=== PATIENT | female | born 1950 | race Caucasian/White ===

== ENCOUNTER → 2017-03-26 | Outpatient (CLI) | payer MEDICARE ==
--- NOTE | 2017-03-26 14:40 | RAD ---
DATE: 03/26/2017 EXAM: MAMMO PLACIDO SCREENING BILATERAL HISTORY: Routine screening COMPARISON: 03/05/2016 This study was interpreted with the benefit of Computerized Aided Detection (CAD). The breast parenchyma shows scattered fibroglandular densities. Breast parenchyma level B. FINDINGS: 2-D and 3-D tomosynthesis imaging was performed in CC and MLO projections. There are dystrophic coarse calcifications in the posterolateral aspect of the right breast with mild architectural distortion. These findings are unchanged and are apparently on a post therapeutic basis in this patient with a history of breast cancer. No new or enlarging breast densities are seen. No suspicious microcalcifications are evident. IMPRESSION: Stable mammograms without evidence of malignancy. BI-RADS CATEGORY: 2 BENIGN FINDING(S) RECOMMENDED FOLLOW-UP: 12M 12 MONTH FOLLOW-UP PQRS compliance statement: Patient information was entered into a reminder system with a target due date for the next mammogram. Mammography is a sensitive method for finding small breast cancers, but it does not detect them all and is not a substitute for careful clinical examination. A negative mammogram does not negate a clinically suspicious finding and should not result in delay in biopsying a clinically suspicious abnormality. "Our facility is accredited by the [employer] Mammography [employer]."
== END | disposition home or self-care (01) ==
LOC: MAMMO 11:03
PROVIDERS: ATTEND Family Medicine
DX: Z12.31 Encounter for screening mammogram for malignant neoplasm of breast (principal); Z85.3 Personal history of malignant neoplasm of breast
CPT/HCPCS: 77063; 77067

== ENCOUNTER → 2017-09-08 | Outpatient (CLI) | payer MEDICARE ==
--- NOTE | 2017-09-08 09:16 | RAD ---
DATE: 09/08/2017 EXAM: DIGITAL DIAGNOSTIC RT, BREAST RIGHT HISTORY: Right breast nodule, previous right breast cancer COMPARISON: 03/26/2017 This study was interpreted with the benefit of Computerized Aided Detection (CAD). The breast parenchyma shows scattered fibroglandular densities. Breast parenchyma level B. FINDINGS: A BB was placed over the area of palpable concern near the right axilla with MLO and exaggerated CC mammograms obtained. The fibroglandular pattern is unchanged since previous studies. There are dystrophic type calcifications in the posterolateral aspect of the right breast presumably on a post therapeutic bases. These coarse calcifications also lie in the region of the BB marking the palpable nodule. No separate soft tissue density or new abnormality is evident. Right breast ultrasound, 09/08/2017: The area of palpable concern was carefully scanned. Just beneath the skin at this level there is a small focus of increased echogenicity measuring only 1-2 mm. There is posterior acoustic shadowing. The appearance is that of a small calcification. Correlation with the mammogram suggests that this represents one of the distal for calcifications. No other abnormality is seen in this region. IMPRESSION: The area of palpable concern in the axillary tail region of the right breast appears to correspond to stable dystrophic calcifications as described above. No suspicious breast densities evident. Clinical surveillance is suggested. BI-RADS CATEGORY: 2 BENIGN FINDING(S) RECOMMENDED FOLLOW-UP: 12M 12 MONTH FOLLOW-UP PQRS compliance statement: Patient information was entered into a reminder system with a target due date for the next mammogram. Mammography is a sensitive method for finding small breast cancers, but it does not detect them all and is not a substitute for careful clinical examination. A negative mammogram does not negate a clinically suspicious finding and should not result in delay in biopsying a clinically suspicious abnormality. "Our facility is accredited by the [employer] Mammography [employer]."
== END | disposition home or self-care (01) ==
LOC: US 07:44
PROVIDERS: ATTEND Nurse Practitioner Adult Health
DX: R22.31 Localized swelling, mass and lump, right upper limb (principal); Z85.3 Personal history of malignant neoplasm of breast
CPT/HCPCS: 76641; 77065

== ENCOUNTER → 2018-04-01 | Outpatient (CLI) | payer MEDICARE ==
--- NOTE | 2018-04-02 07:54 | RAD ---
DATE: 04/01/2018 EXAM: MAMMO PLACIDO SCREENING BILATERAL HISTORY: Screening Mammogram COMPARISON: Mammogram 09/08/2017, 03/26/2017, 03/05/2016 This study was interpreted with the benefit of Computerized Aided Detection (CAD). The breast parenchyma shows scattered fibroglandular densities. Breast parenchyma level B. FINDINGS: Bilateral digital 2-D and 3-D tomosynthesis CC and MLO views. There are stable post therapeutic changes in the upper outer right breast with right axillary surgical clips. No new suspicious mass, calcination or architectural distortion in either breast. No significant change from prior examination appear Impression: 1. Stable post therapeutic changes in the upper outer right breast. 2. No evidence of malignancy. BI-RADS CATEGORY: 2 BENIGN FINDING(S) RECOMMENDED FOLLOW-UP: 12M 12 MONTH FOLLOW-UP PQRS compliance statement: Patient information was entered into a reminder system with a target due date for the next mammogram. Mammography is a sensitive method for finding small breast cancers, but it does not detect them all and is not a substitute for careful clinical examination. A negative mammogram does not negate a clinically suspicious finding and should not result in delay in biopsying a clinically suspicious abnormality. "Our facility is accredited by the [employer] Mammography [employer]."
== END | disposition home or self-care (01) ==
LOC: MAMMO 09:30
PROVIDERS: ATTEND Family Medicine
DX: Z12.31 Encounter for screening mammogram for malignant neoplasm of breast (principal)
CPT/HCPCS: 77063; 77067